=== PATIENT | female | born 1970 | race Caucasian/White ===

== ENCOUNTER 2023-03-12 14:53 | Emergency (ER) | payer BC ==
[2023-03-12] MEDS ORDERED: Zofran 4 MG/2 ML VIAL IV ONE (15:29)
[2023-03-12] MEDS ORDERED: Sodium Chloride 0.9% 1000 ML 1,000 ML IV STA (15:30)
[2023-03-12] MEDS ORDERED: Zofran 4 MG/2 ML VIAL ONE (15:31)
[2023-03-12] MEDS ORDERED: Sodium Chloride 0.9% 1000 ML 1,000 ML ONE (15:31)
[2023-03-12 15:42] LABS: Absolute Neutrophil Ct (ANC) 5.64 x10^3/uL (1.4-6.9); BASOPHIL % 0.5 % (0.0-0.4); Basophil (Absolute #) 0.05 x10^3/uL (0-0.4); Eosinophil % 2.6 % (0.00-5.0); Eosinophil (Absolute #) 0.25 x10^3/uL (0-0.5); Hematocrit 43.7 % (35-47); Hemoglobin 14.3 g/dL (12.0-16.0); IMMATURE GRAN # 0.03 x10^3u/L (0.00-0.03); IMMATURE GRAN % 0.3 % (0.00-0.4); Lymphocyte (Absolute #) 3.06 x10^3/uL (1.0-4.6); Lymphocytes % 31.9 % (24.0-44.0); Mean Cell Volume 91.2 fL (78-100); Mean Corpuscular Hemoglobin 29.9 pg (26-32); Mean Corpuscular Hgb Concent. 32.7 g/dL (32-36); Monocyte (Absolute #) 0.56 x10^3/uL (0.0-1.3); Monocytes % 5.8 % (0.0-12.0); Neutrophil % 58.9 % (36.0-66.0); Platelet Count 283 x10^3/uL (150-450); Red Blood Count 4.79 x10^6/uL (4.1-5.4); Red Cell Distribution Width 13.2 % (11.5-14.0); White Blood Count 9.6 x10^3/uL (4.0-10.5)
[2023-03-12] MEDS ORDERED: MORPHINE SULFATE 4 MG INJ IV ONE (15:44)
[2023-03-12 15:54] LABS: ALBUMIN 4.4 g/dL (3.5-5.0); ALKALINE PHOSPHATASE 114 U/L (38-126); ANION GAP 14.6 MEQ/L (5-15); BLOOD UREA NITROGEN 15 mg/dL (7-17); CHLORIDE 108 mmol/L (98-107); Calcium 9.1 mg/dL (8.4-10.2); Carbon Dioxide 22 mmol/L (22-30); EST GLOMERULAR FILTRATION RATE > 60.0 ML/MIN; Glucose 141 mg/dL (74-106); LIPASE 133 U/L (23-300); Potassium 3.8 mmol/L (3.5-5.1); SGOT/AST 29 U/L (14-36); SGPT/ALT 20 U/L (0-35); SODIUM 141 mmol/L (137-145); Total Protein 8.1 g/dL (6.3-8.2)
[2023-03-12] MEDS ORDERED: MORPHINE SULFATE 4 MG INJ ONE (16:01)
[2023-03-12] MEDS ORDERED: Reglan 10 MG/2 ML IV ONE (16:04)
[2023-03-12] MEDS ORDERED: Reglan 10 MG/2 ML ONE (16:05)
[2023-03-12 16:34] VITALS: O2SAT 94
--- NOTE | 2023-03-12 16:50 | ERPHSYRPT ---
- History of Present Illness Time Seen by Provider: 03/12/23 15:34 Historian: patient Exam Limitations: no limitations Patient Subjective Stated Complaint: C/O left flank pain that started suddenly around 1pm today; patient began vomiting in the ER waiting room Triage Nursing Assessment: Patient ambulated back to ER. She is alert and oriented. Diaphoretic. S/S of pain noted; grimacing. [place] is soft. KANDY BRITO. Physician History: 53 years old female presented to the ER with chief complaint of sudden onset left flank pain around 1 PM moderate to severe sharp, wrapping around to the groin with associated nausea and multiple episodes of nonprojectile, nonbilious vomiting without hematemesis. Denies any history of kidney stone, no urinary complaints. No fever or chills reported. Timing/Duration: hour(s) (2.5), constant, sudden, worse Activities at Onset: rest Quality: sharpness Abdominal Pain Onset Location: flank Pain Radiation: groin Severity of Pain-Max: severe Severity of Pain-Current: severe Modifying Factors: Worsens With: movement, palpation Associated Symptoms: nausea, vomiting Previous symptoms: no prior history Allergies/Adverse Reactions: ketorolac [From Toradol] Allergy (Verified 03/12/23 15:21) Home Medications: Citalopram Hydrobromide [Celexa] 1 tab PO DAILY 03/12/23 [History] Semaglutide [Ozempic] 0.25 mg SQ WEEKLY 03/12/23 [History] Hx Tetanus, Diphtheria Vaccination/Date Given: Yes Immunizations Up to Date: Yes Travel Risk - International Travel Have you traveled outside of the country in past 3 weeks: No - Coronavirus Screening Are you exhibiting any of the following symptoms?: No Close contact with a COVID-19 positive Pt in past 14-21 Days: No - Vaccine Status Have you recieved a Covid-19 vaccination: No - Review of Systems Constitutional: No Symptoms Ears, Nose, & Throat: No Symptoms Respiratory: No Symptoms Cardiac: No Symptoms Abdominal/Gastrointestinal: Abdominal Pain, Nausea, Vomiting Genitourinary Symptoms: No Symptoms Musculoskeletal: Back Pain Skin: No Symptoms Neurological: No Symptoms Psychological: No Symptoms Hematologic/Lymphatic: No Symptoms - Past Medical History Pertinent Past Medical History: Yes Endocrine Medical History: Diabetes Type II Psycho-Social History: Anxiety, Depression - Past Surgical History Past Surgical History: Yes Female Surgical History: Tubal Ligation Other Surgical History: bilateral breast reduction, back surgery L3-S2, titanium in neck c2-c6 - Social History Smoking Status: Current every day smoker How long have you smoked: 40 years Exposure to second hand smoke: No Drug Use: none Patient Lives Alone: No - Nursing Vital Signs Nursing Vital Signs: Initial Vital Signs Blood Pressure 155/106 03/12/23 15:13 Pain Scale Pain Intensity 10 - Physical Exam General Appearance: no apparent distress, alert Eye Exam: PERRL/EOMI Ears, Nose, Throat Exam: normal ENT inspection Neck Exam: normal inspection, full range of motion Respiratory Exam: normal breath sounds, lungs clear Cardiovascular Exam: regular rate/rhythm, normal heart sounds Gastrointestinal/Abdomen Exam: soft, normal bowel sounds, tenderness (Left lower quadrant/left flank with positive CVA tenderness on the left) Extremity Exam: normal inspection, normal range of motion, pelvis stable Neurologic Exam: alert, oriented x 3, cooperative Skin Exam: normal color SpO2 Interpretation: normal SpO2: 94 O2 Delivery: Room Air Ordered Tests: Active Orders 24 hr Category Date Time Status IV Insertion STAT Care 03/12/23 15:34 Active NPO (ED) STAT Care 03/12/23 15:34 Active ABDOMEN AND PELVIS W/0 CONTRAS [CT] Stat Exams 03/12/23 15:54 Completed CBC W DIFF Stat Lab 03/12/23 15:30 Completed CMP Stat Lab 03/12/23 15:30 Completed CULTURE,URINE Stat Lab 03/12/23 16:58 Received LIPASE Stat Lab 03/12/23 15:30 Completed UA W/RFX UR CULTURE Stat Lab 03/12/23 16:58 Completed Medication Summary Discontinued Medications Generic Name Dose Route Start Last Admin Trade Name Freq PRN Reason Stop Dose Admin Sodium Chloride 1,000 mls @ 999 mls/hr 03/12/23 15:30 03/12/23 16:36 Sodium Chloride 0.9% 1000 Ml IV 03/12/23 16:30 Infused .Q1H1M STA Infusion Sodium Chloride Confirm 03/12/23 15:31 Sodium Chloride 0.9% 1000 Ml Administered 03/12/23 15:32 Dose 1,000 mls @ ud .ROUTE .STK-MED ONE Metoclopramide HCl 10 mg 03/12/23 16:04 03/12/23 16:05 Metoclopramide Hcl 10 Mg/2 Ml Vial IV 03/12/23 16:05 10 mg STAT ONE Administration Metoclopramide HCl Confirm 03/12/23 16:05 Metoclopramide Hcl 10 Mg/2 Ml Vial Administered 03/12/23 16:06 Dose 10 mg .ROUTE .STK-MED ONE Morphine Sulfate 4 mg 03/12/23 15:44 03/12/23 16:01 Morphine Sulfate 4 Mg/Ml Injection IV 03/12/23 15:45 4 mg STAT ONE Administration Morphine Sulfate Confirm 03/12/23 16:01 Morphine Sulfate 4 Mg/Ml Injection Administered 03/12/23 16:02 Dose 4 mg .ROUTE .STK-MED ONE Ondansetron HCl 4 mg 03/12/23 15:29 03/12/23 15:32 Ondansetron Hcl 4 Mg/2 Ml Vial IV 03/12/23 15:30 4 mg STAT ONE Administration Ondansetron HCl Confirm 03/12/23 15:31 Ondansetron Hcl 4 Mg/2 Ml Vial Administered 03/12/23 15:32 Dose 4 mg .ROUTE .STK-MED ONE Tamsulosin HCl 0.8 mg 03/12/23 17:04 Tamsulosin Hcl 0.4 Mg Cap PO 03/12/23 17:05 ONCE STA Lab/Rad Data: Laboratory Result Diagrams 03/12/23 15:30 03/12/23 15:30 Laboratory Results 03/12/23 03/12/23 03/12/23 Range/Units 16:58 15:30 15:30 WBC 9.6 (4.0-10.5) x10^3/uL RBC 4.79 (4.1-5.4) x10^6/uL Hgb 14.3 (12.0-16.0) g/dL Hct 43.7 (35-47) % MCV 91.2 (78-100) fL MCH 29.9 (26-32) pg MCHC 32.7 (32-36) g/dL RDW 13.2 (11.5-14.0) % Plt Count 283 (150-450) x10^3/uL MPV 9.0 (7.5-11.0) fL Gran % 58.9 (36.0-66.0) % Immature Gran % (Auto) 0.3 (0.00-0.4) % Nucleat RBC Rel Count 0.0 (0.00-0.1) % Eos # (Auto) 0.25 (0-0.5) x10^3/uL Immature Gran # (Auto) 0.03 (0.00-0.03) x10^3u/L Absolute Lymphs (auto) 3.06 (1.0-4.6) x10^3/uL Absolute Monos (auto) 0.56 (0.0-1.3) x10^3/uL Absolute Nucleated RBC 0.00 (0.00-0.01) x10^3u/L Lymphocytes % 31.9 (24.0-44.0) % Monocytes % 5.8 (0.0-12.0) % Eosinophils % 2.6 (0.00-5.0) % Basophils % 0.5 (0.0-0.4) % Absolute Granulocytes 5.64 (1.4-6.9) x10^3/uL Basophils # 0.05 (0-0.4) x10^3/uL Sodium 141 (137-145) mmol/L Potassium 3.8 (3.5-5.1) mmol/L Chloride 108 H (98-107) mmol/L Carbon Dioxide 22 (22-30) mmol/L Anion Gap 14.6 (5-15) MEQ/L BUN 15 (7-17) mg/dL Creatinine 0.80 (0.52-1.04) mg/dL Estimated GFR > 60.0 ML/MIN Glucose 141 H (74-106) mg/dL Calcium 9.1 (8.4-10.2) mg/dL Total Bilirubin 0.60 (0.2-1.3) mg/dL AST 29 (14-36) U/L ALT 20 (0-35) U/L Alkaline Phosphatase 114 (38-126) U/L Serum Total Protein 8.1 (6.3-8.2) g/dL Albumin 4.4 (3.5-5.0) g/dL Lipase 133 (23-300) U/L Urine Color Yellow (Yellow) Urine Appearance Clear (Clear) Urine pH 5.5 (4.6-8.0) Ur Specific [place] 1.015 (1.005-1.030) Urine Protein Negative (Negative) Urine Glucose (UA) Negative (Negative) mg/dL Urine Ketones Negative (Negative) Urine Blood Large A (Negative) Urine Nitrite Negative (Negative) Urine Bilirubin Negative (Negative) Urine Urobilinogen 0.2 (0.2) mg/dL Ur Leukocyte Esterase Negative (Negative) U Hyaline Cast (Auto) 3-5 A (0-2) /LPF Urine Microscopic RBC 51-100 A (0-5) /HPF Urine Microscopic WBC 0-2 (0-5) /HPF Ur Epithelial Cells None Seen (None Seen) /HPF Urine Bacteria None Seen (None Seen) /HPF Urine Culture Reflexed YES (NO) - Progress Progress: improved Progress Note: 03/12/23 16:49 53 years old female presented to the ER with chief complaint of sudden onset left flank pain around 1 PM moderate to severe sharp, wrapping around to the groin with associated nausea and multiple episodes of nonprojectile, nonbilious vomiting without hematemesis. Denies any history of kidney stone, no urinary complaints. No fever or chills reported. She is given fluids and symptomatic treatment with Zofran and Reglan along with morphine, on reevaluation feeling much better. Work-up showed normal white count, fairly unremarkable chemistries. Normal lipase. 03/12/23 17:57 CT abdomen pelvis without contrast showed moderate left hydroureteronephrosis with 3 tiny stones in the distal ureter measuring between 2.5 to 4 mm. Patient is given Flomax here. On reevaluation she is feeling much better and has minimal to no pain. I believe patient would be able to pass the stone on her own. She does not have UTI. I would give her pain medications and Flomax to go home and recommended outpatient urology follow-up. Discussed signs symptoms of worsening needing return to ER which she seems understanding. Stable for discharge. Counseled pt/family regarding: lab results, diagnosis, need for follow-up, rad results Medical Desision Making - Independent Historian Additional History obtained from: Child - Diagnostic Testing Diagnostic test were ordered, analyzed, and reviewed by me: Yes Radiological Interpretation: Reviewed by me, Teleradiologist Report - Risk of complications The pt has a mod risk of morbidity or mortality based on: Need for prescription drug management, Need for minor surgical intervention in patient with know risk factors - Departure Departure Disposition: Home Clinical Impression: Ureterolithiasis Condition: Stable Critical Care Time: No Referrals: PAWEL TYLER, TUFTER OPERATOR [Primary Care Provider] - Follow up with PCP 1 day DINA ECHAVARRIA [COURTESY STAFF] - Follow up/PCP as directed (Call tomorrow for reevaluation appointment) Instructions: Kidney Stones (DC) Additional Instructions: Take pain medications as needed. Drink plenty of fluids. Follow-up with urology for reevaluation. Return to ER for intractable flank pain, difficulty urination/intractable v omiting/fever chills etc. Prescriptions: Hydrocodone/Acetaminophen [Hydrocodone-Acetamin 5-325 mg] 1 tab PO Q6HPRN PRN 3 Days #10 tablet MDD 4 PRN Reason: Pain Tamsulosin HCl 0.4 mg [Flomax 0.4 MG] 0.4 mg PO DAILY #30 cap
--- NOTE | 2023-03-12 16:59 | XRAY ---
CLINICAL HISTORY:R/o appy or stone- LEFT FLANK 7 lt lower abd pain with nausea & vomiting- Prior tubal and lower back sx- no prior ct abd pel; COMPARISON:None; TECHNIQUES:Contiguous multi-slice CT examinations of the abdomen and pelvis were acquired in the axial plane with coronal and sagittal without intravenous contrast; FINDINGS: The scanned region of the bilateral lower lungs shows 2 nodules in the right middle lobe measuring 6.8 mm and 6.4 mm in size. Further correlation with CT of the chest is advised. Liver- normal unenhanced liver. The gall bladder is regular in contour and attenuation. No evidence of calculi. The pancreas is normal in shape and contour. Peripancreatic planes appear normal. No evidence of calcification or pancreatic duct dilatation is seen. The spleen is normal in contour and attenuation. There is mild fullness of the left adrenal gland. The right adrenal gland is normal. Both kidneys are normal in size, shape and attenuation. No right calculi or right hydronephrosis. 3 tiny calculi are seen in the left kidney, one in the middle and to in the inferior calyces. These calculi measure about 1.5-1.7 mm in size. Mild to moderate left hydroureternephrosis is seen with Dilated left ureter along its entire length due to 3 tiny calculi in the distal ureter measuring about 2.5-4 mm in size. These calculi are located at a distance of about 15 mm Proximal to the vesicoureteric junction. Another tiny calculus is noted in the urinary bladder in its dependent posterior wall adjacent to the left vesicoureteric junction, measuring 2.5 mm in size. Stomach and bowel loops are normal. The appendix is normal. The urinary bladder is empty. The uterus is anteverted and grossly unremarkable. A few tiny phleboliths are noted in the left hemipelvis. Rectum and perirectal fat planes are normal. Bone window setting shows Thoracolumbar spondylosis with grade 1 retrolisthesis of L1 over L2 and grade 1 anterolisthesis of L4 over L5 vertebrae. IMPRESSION: 1. Mild to moderate left hydroureteronephrosis due to 3 tiny calculi in the distal ureter measuring about 2.5-4 mm in size. Another tiny calculus in the urinary bladder adjacent to the left vesicoureteral junction measuring 2.5 mm in size. 2. 3 tiny left renal calculi measuring about 1.5-1.7 mm in size. 3. 2 nodules in the right middle lung lobe measuring 6.8 mm and 6.4 mm which needs further correlation with CT of the chest. 4. Normal appendix. Electronically Signed by: Lily Gregorio MD. (03/12/2023 15:48:19 BAND SAWMILL OPERATOR)
[2023-03-12] MEDS ORDERED: Flomax 0.4 MG PO STA (17:04)
[2023-03-12 17:22] LABS: Appearance Clear (Clear); Bacteria None Seen /HPF (None Seen); Bilirubin Negative (Negative); Blood Large (Negative); Epithelial Cells None Seen /HPF (None Seen); Glucose, Urine Negative (Negative); Ketones Negative (Negative); Leukocyte Esterase Negative (Negative); Nitrite Negative (Negative); Ph 5.5 (4.6-8.0); Protein,Urine Dip Negative (Negative); RBC 51-100 /HPF (0-5); Specific Gravity 1.015 (1.005-1.030); Urobilinogen 0.2 mg/dL (0.2); WBC 0-2 /HPF (0-5)
[2023-03-12 17:27] LABS: ADD URINE CULTURE? YES (NO)
[2023-03-12] MEDS ORDERED: NORCO 5/325 MG PO ONE (18:00)
[2023-03-12] MEDS ORDERED: NORCO 5/325 MG ONE (18:06)
[2023-03-12] MEDS ORDERED: Flomax 0.4 MG ONE (18:06)
[2023-03-12 18:21] VITALS: BP 164/92; PULSE 88
== END 2023-03-12 18:17 | disposition home or self-care (01) ==
LOC: ED 14:53
DX: N13.2 Hydronephrosis with renal and ureteral calculous obstruction (principal); R11.2 Nausea with vomiting, unspecified; R10.9 Unspecified abdominal pain; E11.9 Type 2 diabetes mellitus without complications; Z79.85 Long-term (current) use of injectable non-insulin antidiabetic drugs; Z79.891 Long term (current) use of opiate analgesic; Z79.899 Other long term (current) drug therapy; Z28.310 Unvaccinated for COVID-19; Z72.0 Tobacco use
CPT/HCPCS: 36000; 36415; 74176; 80053; 81001; 83690; 85025; 87086; 96360; 96374; 96375; 99284; J2270; J2405; A9270-GY